=== PATIENT | female | born 1975 | race Caucasian/White ===

== ENCOUNTER → 2016-12-17 | Day surgery (SDC) | payer OTHER ==
[~2016-12-17] VITALS: Ht 165.1 cm; Wt 160.3 kg
[~2016-12-17] MED LIST: ACETAMINOPHEN 1000 MG/100 ML VIAL IV ONE; ADVA250A INH; DO NOT ADM ANY ANTICOAGULANT DRUGS XX PRN; FAMOTIDINE 20 MG/2 ML VIAL ONE; FEXO1TAB97 PO; INSULIN HUMAN REGULAR 1,000 UNITS/10 ML VIAL SQ PRN; KETOROLAC TROMETHAMINE 30 MG/ML (IVP) VIAL IV PUSH PRN; LACTATED RINGER'S 1000 ML IV SCH; METOPROLOL TARTRATE 25 MG TAB PO PRN; MIDAZOLAM HCL 2 MG/2 ML VIAL ONE; NEOSTIGMINE 3 MG/3 ML SYR IV ONE; ONDANSETRON HCL 4 MG/2 ML VIAL IV PUSH ONE; PROPOFOL 200 MG/20 ML AMP IV ONE; SODIUM CHLORID 0.9% 500 ML IV SCH; VENTAER INH
[2016-12-17 12:02] VITALS: BP 185/91; PULSE 80; RESP 20; TEMP 98.7; O2SAT 97
[2016-12-17 15:25] VITALS: BP 148/81; PULSE 63; RESP 18; TEMP 97.9; O2SAT 96
--- NOTE | 2016-12-21 10:07 | MP ---
cc: LASHELL TERRY M.D., KELLY L. MD SAHGAL, GEETA D. M.D. DATE OF SURGERY 12/17/2016 PREOPERATIVE DIAGNOSES 1. Irregular heavy bleeding. 2. Enlarged uterus, multiple leiomyomas. 3. Adnexal masses versus pedunculated leiomyomas. POSTOPERATIVE DIAGNOSES 1. Irregular heavy bleeding. 2. Enlarged uterus, multiple leiomyomas. 3. Adnexal masses versus pedunculated leiomyomas. PROCEDURE Examination under anesthesia, fractional dilation and curettage. SURGEON Praveena Quintero MD PLASTERER HELPER Sheridan senior administrative assistant. ANESTHESIA General endotracheal anesthesia. ESTIMATED BLOOD LOSS 100 cc. IV FLUIDS Approximately 1000 cc. HISTORY A 41-year-old female with heavy irregular bleeding. Exam and imaging showed a markedly enlarged uterus, multiloculated, radiographically suggestive of leiomyomas. She also has either bilateral adnexal masses are pedunculated leiomyomas. Body habitus 158 kg. She has been counseled regarding these findings, the medical versus surgical interventions that may be considered. She is scheduled for MRI scan which has not yet been done in an effort to better delineate the characteristics of the pelvic masses to determine if medical management in lieu of surgery or in preparation for surgery in an effort to reduce blood loss and reduce the size of the leiomyomas could be considered. She is seen again in the preop holding area where these issues are again discussed. She understands that today's procedures is diagnostic only to clarify the presence or absence of precancer or cancer from the endometrium or the endocervix. She understands that today's procedure cannot clarify the tissue diagnosis of the uterine and/or adnexal masses. MRI scan is hopeful to provide clarification. She expressed good understanding and agrees. PROCEDURE The patient is taken to the operating room, placed in dorsal lithotomy position after general endotracheal anesthesia was administered. Time-out was undertaken. The patient was identified by sight recognition and hospital ID bracelet and the proposed procedure was reviewed and confirmed. She was carefully positioned in padded candy-cane stirrups. She was padded and protected, all sites noted to be properly aligned with no malalignments or pressure points. Exam under anesthesia was performed. She was prepped and draped in sterile fashion. The findings were that of no appreciably enlarged inguinal lymph nodes. External genitalia without mass or lesion. The cervix grossly appears normal. There was some redundant vaginal mucosa. The uterus sounded to between 12 and 13 cm, was slightly anteverted. There was a moderate amount of tissue obtained from the endocervical curettings as well as small fragments of polypoid tissue obtained from the endometrial curettings. There was more blood than expected even during dilation of the cervix and curetting of the endocervix and endometrium. Estimated blood loss was approximately 100 cc, completely hemostatic at the end of the procedure. The cervix was grasped, uterine cavity sounded, endocervical curettings were performed, multiple passes. Circumferential biopsy of the tissue was combined as endocervical curetting. The cervix was dilated with gradual dilators. The uterine cavity was again sounded. The endometrial cavity was curetted with multiple passes circumferentially, tissue combined as endometrial curettings. More bleeding than expected for a D&C and hemostatic Yakov was placed using a laparoscopic applicator into the endometrial cavity, the lower uterine segment and endocervix and there was complete hemostasis. Tenaculum was removed and Yakov was placed at the tenaculum sites. Pelvic exam confirmed there were no remaining foreign objects in the vagina. Inspection for a number of moments confirmed good hemostasis. Preliminary and final counts were correct. She was returned to dorsal supine position pending reversal of anesthesia when I left the operating room to precede her to the Post-Anesthesia Care Unit and to speak with her family member in waiting room. ADDENDUM It is noted that her preoperative hemoglobin was 8.3 and that she was already significantly anemic with limited reserve should she continue to bleed heavy. I spoke with her and then I spoke with her in the recovery room and felt that whatever component of bleeding is due to the leiomyomas or premenopausal menometrorrhagia could potentially be benefited from starting Depo-Lupron as we had previously discussed. I again went over the medication, the potential value, the potential side effects, the menopausal symptomatology. Discussion ensued questions were answered. She and her both expressed good understanding and were in favor of starting this medication. This was not able to be given as an inpatient so my office staff to work with outpatient pharmacy such that after she was discharged from the PACU and Same-Day Surgery, she was transferred to the [facility] [place] where as an outpatient she received her first injection of 3.75 mg Depo-Lupron which she tolerated without any immediate adverse effects. She understands to contact our office to schedule followup in 1-2 weeks and she has been advised to present to the emergency room should she have a persistent and heavy bleeding and she is aware of her anemic status. MD BRITTANY Aguilar/JENNIFER /7:27 AM /9:54 AM
== END | disposition home or self-care (01) ==
LOC: HSDC 10:55
PROVIDERS: ATTEND Obstetrics & Gynecology Gynecologic Oncology
DX: N92.1 Excessive and frequent menstruation with irregular cycle (principal); D25.9 Leiomyoma of uterus, unspecified; N84.0 Polyp of corpus uteri
CPT/HCPCS: 00940; 58120; 86850; 86900; 86901; 88305; J0131; J2250; J2405; J2710; J3010; J7120

== ENCOUNTER → 2018-02-26 | Outpatient (CLI) | payer OTHER ==
[~2018-02-26] MED LIST changes: -ACETAMINOPHEN 1000 MG/100 ML VIAL IV ONE; +CALC250T PO; +CRANCAP2 PO; -DO NOT ADM ANY ANTICOAGULANT DRUGS XX PRN; -FAMOTIDINE 20 MG/2 ML VIAL ONE; +FLUTI220I INH; +HYDR-3516 PO; -INSULIN HUMAN REGULAR 1,000 UNITS/10 ML VIAL SQ PRN; -KETOROLAC TROMETHAMINE 30 MG/ML (IVP) VIAL IV PUSH PRN; -LACTATED RINGER'S 1000 ML IV SCH; -METOPROLOL TARTRATE 25 MG TAB PO PRN; -MIDAZOLAM HCL 2 MG/2 ML VIAL ONE; +MULT-65 PO; -NEOSTIGMINE 3 MG/3 ML SYR IV ONE; -ONDANSETRON HCL 4 MG/2 ML VIAL IV PUSH ONE; -PROPOFOL 200 MG/20 ML AMP IV ONE; -SODIUM CHLORID 0.9% 500 ML IV SCH
--- NOTE | 2018-02-26 15:16 | RADRPT ---
EXAM DATE/TIME: 02/26/2018 14:40 [facility] COMPARISON: No previous studies available for comparison. INDICATIONS : Evaluate for pneumonia, pneumothorax or communicable disease Hysterectomy 03/09 MEDICAL HISTORY : Asthma SURGICAL HISTORY : None. ENCOUNTER: Initial ACUITY: 1 day PAIN SCORE: 0/10 LOCATION: Bilateral chest FINDINGS: PA and lateral views of the chest demonstrate a normal-sized cardiac silhouette. There is no effusion , consolidation, or pneumothorax. The bones and soft tissues demonstrate no acute abnormality. There are degenerative changes of the thoracic spine. CONCLUSION: No acute cardiopulmonary abnormality is identified. Jorge Clinton MD on February 26, 2018 at 15:12 Board Certified Radiologist. This report was verified electronically.
--- NOTE | 2018-02-28 13:08 | EKG ---
Date Performed: 02/26/2018 Time Performed: 14:04:00 PTAGE: 42 years EKG: NORMAL Sinus rhythm NORMAL ECG NO PREVIOUS TRACING DOCTOR: Mario Good Interpretating Date/Time 02/28/2018 13:08:05
== END ==
LOC: CPRE 13:51
PROVIDERS: ATTEND Obstetrics & Gynecology Gynecologic Oncology
DX: Z01.810 Encounter for preprocedural cardiovascular examination (principal); Z01.811 Encounter for preprocedural respiratory examination; Z01.812 Encounter for preprocedural laboratory examination; Z01.818 Encounter for other preprocedural examination; N25.9 Disorder resulting from impaired renal tubular function, unspecified; N85.2 Hypertrophy of uterus
CPT/HCPCS: 71046; 93005

== ENCOUNTER 2018-03-06 06:48 | Observation (INO) | payer OTHER ==
[~2018-03-06] VITALS: Ht 165.1 cm; Wt 170.0 kg
[2018-03-06] VITALS (10 sets, daily range): BP systolic 156–188; BP diastolic 80–101; PULSE 58–85; RESP 16–20; TEMP 97.1–98.3; O2SAT 93–98
[~2018-03-06 06:48] MED LIST changes: -FLUTI220I INH; -HYDR-3516 PO
[2018-03-06] MEDS ORDERED: FLUTI220I INH (07:26)
[2018-03-06] MEDS ORDERED: ONDANSETRON HCL 4 MG/2 ML VIAL IV PUSH SCH (07:45)
[2018-03-06] MEDS ORDERED: DIAZEPAM 10 MG TAB PO SCH (07:45)
[2018-03-06] MEDS ORDERED: KETOROLAC TROMETHAMINE 30 MG/ML (IVP) VIAL IV PUSH SCH (07:45)
[2018-03-06] MEDS: SODIUM CHLOR 0.9% 1000 ML INJ 1,000 ML IV SCH ×3 (07:45→20:10)
[2018-03-06] MEDS ORDERED: SODIUM CHLOR 0.9% 1000 ML INJ 1,000 ML IV SCH (08:00)
[2018-03-06] MEDS ORDERED: fentaNYL CITRATE 250 MCG/5 ML AMP ONE (08:12)
[2018-03-06] MEDS ORDERED: MIDAZOLAM HCL 2 MG/2 ML VIAL ONE ×2 (08:12→09:33)
[2018-03-06] MEDS ORDERED: VERAPAMIL HCL 5 MG/2 ML VIAL ONE (08:12)
[2018-03-06] MEDS ORDERED: LEVOFLOXACIN 500 MG PREMIX INJ 100 ML IV ONE ×2 (08:13→08:45)
[2018-03-06] MEDS ORDERED: NALOXONE HCL 0.4 MG/ML AMP IV PUSH PRN (08:30)
[2018-03-06] MEDS ORDERED: NITROGLYCERIN 1000 MCG/5 ML VIAL OTHER ONE (09:55)
--- NOTE | 2018-03-06 11:06 | PD.RAD ---
Post Procedure Progress Note Pre Procedure Diagnosis: (1) Uterine fibroid Post Procedure Diagnosis: (1) Uterine fibroid Procedure Date: Mar 06, 2018 Supervising Radiologist: Kameron Alcantar Proceduralist/Assist: Geronimo Aguilar, RT(R), Yumiko Friend RT(R) Anesthesia: Conscious Sedation Plan of Activity Patient to Unit: [facility] Patient Condition: Good See PACS Report for procedural detail/treatment Kameron Alcantar MD Mar 06, 2018 11:06
[2018-03-06] MEDS ORDERED: ACETAMINOPHEN 325 MG TAB PO PRN (11:15)
[2018-03-06] MEDS ORDERED: HYDROmorphone HCL PF 2 MG/ML VIAL ONE (11:38)
--- NOTE | 2018-03-06 11:40 | HHI.HP ---
HPI Service [facility] Hospitalists Primary Care Physician Hanna Zhong M.D. Admission Diagnosis Chief Complaint: vaginal bleeding Travel History International Travel<30 Days: No Contact w/Intl Traveler <30 Da: No Traveled to Known Affected Are: No History of Present Illness Pt is 42 yo with asthma and irregular vaginal bleeding. Has been followed by Dr Quintero for large irregular uterine masses. Sent in today for keysha uterine artery embolization in preparation for niyah/bso on Friday according to pt. Seen in [facility] post procedure and currently using a dilaudid mortgage loan counselor. Review of Systems Other uterine fibroids Past Family Social History Past Medical History asthma uterine fibroids vaginal bleeding. 3 sections. Reported Medications Rosalia-D 24 Hour Allergy (Fexofenadine-Pseudoephedrine ER 24 HR) 180-240 Bambi 1 Tab PO DAILY PRN Advair Diskus Inh (Fluticasone-Salmeterol Inh) 250-50 Mcg/Blist Aer 1 Puff INH DAILY Rinse mouth after use. ventolin prn Allergies: Coded Allergies: latex (Unverified Allergy, Severe, GENERALIZED WELTS, 03/06/18) milk (Unverified Allergy, Severe, WHEEZE, 03/06/18) NOT ALLERGIC TO DAIRY, ONLY TO MILK penicillin G (Unverified Allergy, Severe, RASH, 03/06/18) shrimp (Unverified Allergy, Severe, ANAPHYLAXIS, 03/06/18) PT STS. ALLERGIC TO SHRIMP, BUT NO OTHER SHELLFISH AND NOT TO IODINE Family History nc Social History social etoh no tobacco Physical Exam Vital Signs lying in bed oriented no labored breathing heart reg lung cta abd s/bs ext no edema Vital Signs Date Time Temp Pulse Resp B/P (MAP) Pulse Ox O2 Delivery O2 Flow Rate FiO2 03/06/18 11:05 97.6 69 18 171/94 (119) 93 03/06/18 07:26 Room Air Caprini VTE Risk Assessment Caprini VTE Risk Assessment: Mod/High Risk (score >= 2) Caprini Risk Assessment Model Point Value = 1 Point Value = 2 Point Value = 3 Point Value = 5 Age 41-60 Minor surgery BMI > 25 kg/m2 Swollen legs Varicose veins or History of unexplained or recurrent spontaneous Oral contraceptives or hormone replacement Sepsis (< 1 month) Serious lung disease, including pneumonia (< 1 month) Abnormal pulmonary function Acute myocardial infarction Congestive heart failure (< 1 month) History of inflammatory bowel disease Medical patient at bed rest Age 61-74 Arthroscopic surgery Major open surgery (> 45 min) Laparoscopic surgery (> 45 min) Malignancy Confined to bed (> 72 hours) Immobilizing plaster cast Central venous access Age >= 75 History of VTE Family history of VTE Factor V Leiden Prothrombin [id number] Lupus anticoagulant Anticardiolipin antibodies Elevated serum homocysteine Heparin-induced thrombocytopenia Other congenital or acquired thrombophilia Stroke (< 1 month) Elective arthroplasty Hip, pelvis, or leg fracture Acute spinal cord injury (< 1 month) Prophylaxis Regimen Total Risk Factor Score Risk Level Prophylaxis Regimen 0-1 Low Early ambulation 2 Moderate Order ONE of the following: *Sequential Compression Device (SCD) *Heparin 5000 units SQ BID 3-4 Higher Order ONE of the following medications: *Heparin 5000 units SQ TID *Enoxaparin/Lovenox 40 mg SQ daily (WT < 150 kg, CrCl > 30 mL/min) *Enoxaparin/Lovenox 30 mg SQ daily (WT < 150 kg, CrCl > 10-29 mL/min) *Enoxaparin/Lovenox 30 mg SQ BID (WT < 150 kg, CrCl > 30 mL/min) AND/OR *Sequential Compression Device (SCD) 5 or more Highest Order ONE of the following medications: *Heparin 5000 units SQ TID (Preferred with Epidurals) *Enoxaparin/Lovenox 40 mg SQ daily (WT < 150 kg, CrCl > 30 mL/min) *Enoxaparin/Lovenox 30 mg SQ daily (WT < 150 kg, CrCl > 10-29 mL/min) *Enoxaparin/Lovenox 30 mg SQ BID (WT < 150 kg, CrCl > 30 mL/min) AND *Sequential Compression Device (SCD) Assessment and Plan Problem List: (1) Uterine fibroid ICD Codes: D25.9 - Leiomyoma of uterus, unspecified Status: Acute Plan: 1)uterine fibroids/vaginal bleeding. uterine art. embolization today 2. asthma pt to be admitted overnight for post procedure monitoring and pain control pt reports planned niyah/bso on Friday. cont home asthma meds dvt prophylaxis plan for d/c tomorrow if stable. Chris Guzman MD Mar 06, 2018 11:40
[2018-03-06] MEDS ORDERED: RESP: ALBUTEROL 2.5 MG/IPRATROPIUM 0.5 MG NEB (PRN) NEB (11:45)
--- NOTE | 2018-03-06 11:59 | RADRPT ---
EXAM DATE/TIME: 03/06/2018 07:54 [facility] COMPARISON: No previous studies available for comparison. INDICATIONS : 42-year-old female with history of menorrhagia and large leiomyomatous uterus. Patient is scheduled f or hysterectomy and presents for pre-surgical uterine artery embolization secondary to body habitus a nd history of multiple prior C-sections with anticipated adhesions and increased risk for hemorrhage. MEDICAL HISTORY : Asthma Gallstones Abdomen bleeding SURGICAL HISTORY : Collar bone fracture x3 ENCOUNTER: Initial ACUITY: 2 weeks PAIN SCORE: 0/10 FLUORO TIME: 23.6 minutes IMAGE SERIES: 7 ACCESS SITE: Left Radial artery SEDATION TIME: 60 minutes CONTRAST: 1.) 90 cc Visipaque (iodixanol) MEDICATION(S): 1.) 5.5 mg midazolam (Versed) IV 2.) 300 mcg fentanyl (Sublimaze) IV 1.) Bilateral uterine arteries PVA 355-550 PVA x3 PROCEDURE : 1. Ultrasound-guided puncture of the access site. 2. Conscious sedation with continuous EKG and Oximetry monitoring. 3. Pelvic angiogram 4. Selective catheter placement in the right internal iliac artery with selective angiography 5. 3-500 m particle embolization of the right uterine artery 6. Selective catheter placement in the left internal iliac artery with selective angiography 7. 3-500 m particle embolization of the left uterine artery The risks, benefits and alternatives to the procedure were explained and verbal and written consent w as obtained. The site was prepped in sterile fashion. Full sterile technique was used, including ca p, mask, sterile gloves and gown and a large sterile sheet. Hand hygiene and 2% chlorhexidine and/or betadine/alcohol prep was utilized per protocol for cutaneous antisepsis. Sterile gel and sterile p robe cover were utilized for ultrasound guidance. The skin and subcutaneous tissues were infiltrated with local anesthetic solution. With ultrasound and fluoroscopic guidance the left radial artery was punctured and a vascular sheath was placed. A 4 [place] PermCath was then advanced into the right internal iliac artery and angiograph y was performed. This demonstrated an enlarged uterine artery with abnormal enhancement in the uterus consistent with history of leiomyoma. A microcatheter was subsequently advanced into the uterine art tod and position confirmed. Uterine artery was then embolized to stasis with 3-500 m PVA particles. Followup angiography demonstrated stasis of flow and the catheter was repositioned in the left application development intern al iliac artery. Angiography was performed. This again demonstrated an enlarged left uterine artery w ith abnormal enhancement of the uterus. A microcatheter was advanced into the left uterine artery and position confirmed with angiography. The left uterine artery was subsequently embolized with 3-500 m PVA particles to stasis. Followup angiography demonstrated stasis of flow. Catheter was then reposi tioned in the distal aorta angiography was performed. This did not demonstrate any variant uterine ar teries with stasis of flow in the embolized urine arteries and resolution of abnormal enhancement in the uterus. Remaining internal iliac branches are widely patent. Catheters and wires were then remove d. Hemostasis was obtained with TR band device. The patient tolerated the procedure well and there were no complications. Conscious sedation was performed with the prescribed dosages and duration as above in the presence of an independent trained radiology nurse to assist in the monitoring of the patient. EKG and oximetry remained stable throughout the procedure. CONCLUSION: 1. Uncomplicated bilateral uterine artery embolization, as above. Kameron Alcantar MD on March 06, 2018 at 11:48 Board Certified Radiologist. This report was verified electronically.
[2018-03-06] MEDS: KETOROLAC TROMETHAMINE 30 MG/ML (IVP) VIAL IVP SCH ×2 (12:00→17:42)
[2018-03-06] MEDS: ONDANSETRON HCL 4 MG/2 ML VIAL IV PUSH PRN ×2 (13:07→17:42)
[2018-03-06] MEDS ORDERED: PCA - TOTAL MG DILAUDID DELIVERED PER SHIFT SCH (14:00)
[2018-03-06] MEDS: HYDROmorphone HCL PCA 6 MG/30 ML IV SCH ×3 (14:05→18:52)
--- NOTE | 2018-03-06 16:28 | MB ---
cc: Praveena Quintero MD,Chris Brantley,Cara RIVERA,CLARISA Alcantar,Kameron SANCHEZ DATE: 03/06/2018 DATE OF ENCOUNTER: 03/06/2018. DIAGNOSIS: 1. Large uterine leiomyomas. 2. Status post bilateral uterine artery embolization. 3. Forthcoming surgery. HISTORY OF PRESENT ILLNESS: Elinor Metcalf is seen in the Radiology Outpatient Recovery Room. She is status post bilateral uterine artery embolization by Dr. Kameron Alcantar. The reason and the request for the procedure was because of markedly enlarged uterus and she is scheduled for surgery this forthcoming Friday, hysterectomy in an effort to try to reduce intraoperative blood loss. DISCUSSION: She is still a little bit somnolent, has some pain and some nausea after anesthesia, but she has met criteria and is ready to be transferred to the floor for observation and admission and I am extremely grateful for the care provided by all parties involved, especially Dr. Chris Guzman who is graciously overseeing her care. I had the opportunity to speak with Dr. Alcantar. He felt that the procedure went well and the objectives of successful bilateral uterine artery embolization went well and is confident will help with reduction in operative blood loss. I then spoke more with Elinor Metcalf and her and had a brief conversation summarizing the saunders points and plan for surgery on Friday, as well as the preparation steps for between now and surgery. I am pleased the procedure went well. She has pain medication available including a ROLLER SETTER pump that she is using. Discussion ensued. Questions were asked and answered. They expressed good understanding. ASSESSMENT: 1. Markedly enlarged uterus. 2. Status post bilateral uterine artery embolization. 3. Forthcoming surgery scheduled this Friday. 4. Overall, doing well. PLAN: 1. Move forward with preoperative steps this and surgery Friday as scheduled. 2. I am very grateful for the care of all those involved in taking care of Elinor Metcalf. MD AXEL Meza/RENÉE , 03:38 PM , 04:27 PM
[2018-03-06] MEDS ORDERED: MORPHINE SULFATE 4 MG/ML INJ IV PRN (20:15)
[2018-03-06] MEDS ORDERED: cloNIDine HCL 0.1 MG TAB PO PRN (21:45)
[2018-03-06] MEDS ORDERED: PROMETHAZINE INJ 25 MG/ML VIAL IM PRN (22:15)
[2018-03-06] MEDS: ACETAMINOPHEN/HYDROcodone 325 MG/5 MG TAB PO PRN (22:17)
[2018-03-07 00:30] VITALS: BP 145/65; PULSE 79; RESP 18; TEMP 97.7; O2SAT 96
[2018-03-07] MEDS: KETOROLAC TROMETHAMINE 30 MG/ML (IVP) VIAL IVP SCH ×2 (00:49→05:20)
[2018-03-07] MEDS: ACETAMINOPHEN/HYDROcodone 325 MG/5 MG TAB PO PRN ×2 (04:03→09:34)
[2018-03-07 04:25] VITALS: BP 135/65; PULSE 76; RESP 16; TEMP 98.3; O2SAT 93
[2018-03-07 08:00] VITALS: BP 146/64; PULSE 72; RESP 18; TEMP 98.2; O2SAT 94
[2018-03-07] MEDS ORDERED: LEVOFLOXACIN 500 MG TAB PO SCH (09:00)
[2018-03-07] MEDS ORDERED: BUDESONIDE-FORMOTEROL 160/4.5 MCG INHALER INH SCH (09:00)
--- NOTE | 2018-03-07 09:59 | HHI.PR ---
Subjective Remarks Pts pain is better controlled this morning with oral pain meds She wants to get out of bed and move Ivy cath still in place Objective Vitals Vital Signs Date Time Temp Pulse Resp B/P (MAP) Pulse Ox O2 Delivery O2 Flow Rate FiO2 03/07/18 08:00 98.2 72 18 146/64 (91) 94 03/07/18 05:23 93 Room Air 03/07/18 04:50 Nasal Cannula 2.00 03/07/18 04:25 98.3 76 16 135/65 (88) 93 03/07/18 00:30 97.7 79 18 145/65 (91) 96 03/06/18 20:30 97.4 68 17 180/86 (117) 95 03/06/18 20:17 95 Nasal Cannula 2.00 03/06/18 18:52 16 03/06/18 16:00 97.1 58 16 186/80 (115) 95 03/06/18 15:45 18 03/06/18 14:20 62 20 163/88 (113) 95 03/06/18 14:15 16 03/06/18 14:05 20 03/06/18 13:50 59 18 156/87 (110) 98 03/06/18 13:20 72 18 156/82 (106) 94 03/06/18 12:50 74 18 171/90 (117) 95 03/06/18 12:20 72 18 165/91 (115) 95 03/06/18 11:50 85 20 176/99 (124) 93 03/06/18 11:20 73 20 177/90 (119) 95 03/06/18 11:05 98.3 80 20 188/101 (130) 93 03/06/18 11:05 97.6 69 18 171/94 (119) 93 Imaging Last Impressions Angiography 03/06/18 0707 Signed Impressions: Service Date/Time: Tuesday, March 06, 2018 07:54 - CONCLUSION: 1. Uncomplicated bilateral uterine artery embolization, as above. Kameron Alcantar MD Objective Remarks General: NAD, AAOx3 Chest: CTA bilaterally Cardiac: Regular Abd: +BS, soft obese, nondistended Ext: No edema A/P Problem List: (1) Uterine fibroid ICD Codes: D25.9 - Leiomyoma of uterus, unspecified Status: Acute Plan: Uterine fibroids/vaginal bleeding s/p bilateral uterine artery embolization on - Cont. pain control PRN with oral pain meds - Pt is planned for NIYAH/BSO on Friday with Dr. Quintero - Remove Ivy cath today - OOB with assistance - DVT prophylaxis - Anticipate d/c home later today Asthma - Cont home asthma meds Assessment and Plan Patient examined. Assessment and plan formulated with Teri Hammer PA-C. I agree with the above. s/p uterine artery embolization. niyah/bso Friday d/c home. Problem Qualifiers (1) Uterine fibroid: Qualified Codes: D25.9 - Leiomyoma of uterus, unspecified Teri Hammer Mar 07, 2018 09:59 Chris Guzman MD Mar 07, 2018 11:40
--- NOTE | 2018-03-07 10:04 | HHI.DCPOC ---
Discharge Care Plan Diagnosis: (1) Uterine fibroid Goals to Promote Your Health * To prevent worsening of your condition and complications * To maintain your health at the optimal level Directions to Meet Your Goals Take your medications as prescribed Follow your dietary instruction Follow activity as directed Keep your appointments as scheduled Take your immunizations and boosters as scheduled If your symptoms worsen call your PCP, if no PCP go to Urgent Care Center or Emergency Room Smoking is Dangerous to Your Health. Avoid second hand smoke Call the 24-hour hour crisis hotline for domestic abuse at Teri Hammer Mar 07, 2018 10:04
[2018-03-07] MEDS ORDERED: HYDR-3516 PO (10:28)
[2018-03-07 10:34] VITALS: RESP 18
== END 2018-03-07 13:12 | disposition home or self-care (01) ==
LOC: HROP 06:48 → HRIP 06:48 → N06A 14:55 → HROP 16:08 → N06A 16:08
PROVIDERS: ADMIT Hospitalist; ATTEND Hospitalist
DX: D25.9 Leiomyoma of uterus, unspecified (principal); N93.9 Abnormal uterine and vaginal bleeding, unspecified; N85.2 Hypertrophy of uterus; J45.909 Unspecified asthma, uncomplicated
CPT/HCPCS: 36247; 37243; 75625; 75736; 75774; 86850; 86900; 86901; 96372; 96374; 96375; 96376; 99152; 99153; C1769; C1887; C1894; G0378; J1170; J1644; J1885; J1956; J2250; J2270; J2405; J2550; J3010; J7030

== ENCOUNTER 2018-03-09 05:47 | Inpatient (IN) | payer OTHER ==
[~2018-03-09] VITALS: Ht 165.1 cm; Wt 167.6 kg
[2018-03-09] VITALS (7 sets, daily range): BP systolic 130–209; BP diastolic 64–87; PULSE 74–88; RESP 16; TEMP 97.8–98.4; O2SAT 96–99
[~2018-03-09 05:47] MED LIST changes: +FLUTI220I INH; +HYDR-3516 PO
[2018-03-09] MEDS ORDERED: HEPARIN SODIUM - SQ 10,000 UNITS/ML VIAL SQ SCH (06:30)
[2018-03-09] MEDS ORDERED: POVIDONE IODINE 5% (ANTISEPSIS KIT) 4 APPLICATIONS EACH NARE PRN (06:30)
[2018-03-09] MEDS ORDERED: LACTATED RINGER'S 1000 ML IV PRN (06:30)
[2018-03-09] MEDS ORDERED: SODIUM CHLORID 0.9% 500 ML IV PRN (06:30)
[2018-03-09] MEDS ORDERED: LEVOFLOXACIN 500 MG PREMIX INJ 100 ML IV SCH (06:30)
[2018-03-09] MEDS ORDERED: metroNIDAZOLE 500 MG INJ 100 ML IV SCH (06:30)
[2018-03-09] MEDS ORDERED: METOPROLOL TARTRATE 25 MG TAB PO PRN (06:30)
[2018-03-09] MEDS ORDERED: CHLORHEXIDINE GLUCONATE 2 % 1 PACK (2 CLOTHS) TOPICAL PRN (06:30)
[2018-03-09] MEDS ORDERED: ACETAMINOPHEN 1000 MG/100 ML 100 ML IV ONE (06:55)
[2018-03-09] MEDS ORDERED: SUGAMMADEX SODIUM 200 MG/2 ML VIAL IV PUSH ONE (11:10)
[2018-03-09] MEDS ORDERED: METHYLENE BLUE 10 MG/ML VIAL OTHER ONE (11:24)
[2018-03-09] MEDS ORDERED: GLYCOPYRROLATE 1 MG/5 ML SYRINGE IV PUSH ONE (12:00)
[2018-03-09] MEDS ORDERED: METOPROLOL TARTRATE 5 MG/5 ML VIAL IV ONE (12:00)
[2018-03-09] MEDS ORDERED: LABETALOL HCL 100 MG/20 ML VIAL IV ONE (12:00)
[2018-03-09] MEDS ORDERED: ONDANSETRON HCL 4 MG/2 ML VIAL IV ONE (12:00)
[2018-03-09] MEDS ORDERED: DEXAMETHASONE SOD PHOS 4 MG/ML VIAL IV ONE (12:00)
[2018-03-09] MEDS ORDERED: VECURONIUM BROMIDE 20 MG VIAL IV ONE (12:00)
[2018-03-09] MEDS ORDERED: STERILE WATER FOR INJECTION 20 ML VIAL IV ONE (12:00)
[2018-03-09] MEDS ORDERED: PROPOFOL 200 MG/20 ML AMP IV ONE (12:00)
[2018-03-09] MEDS ORDERED: SUCCINYLCHOLINE CHLORIDE 100 MG/5 ML SYRINGE IV PUSH ONE (12:00)
[2018-03-09] MEDS ORDERED: ROCURONIUM INJ 50 MG/5 ML SYRINGE IV PUSH ONE (12:00)
[2018-03-09] MEDS: D5-1/2 NS + KCL 20 MEQ INJ 1,000 ML IV SCH ×3 (12:26→22:04)
[2018-03-09] MEDS ORDERED: diphenhydrAMINE HCL 25 MG CAP PO PRN (12:30)
[2018-03-09] MEDS ORDERED: SODIUM CHLORIDE 0.9% FLUSH 10 ML FLUSH IV FLUSH PRN ×2 (12:30)
[2018-03-09] MEDS ORDERED: oxyCODONE/ACETAMINOPHEN 5 MG/325 MG TAB PO PRN ×2 (12:30)
[2018-03-09] MEDS ORDERED: NALOXONE HCL 0.4 MG/ML AMP IV PUSH PRN (12:30)
[2018-03-09] MEDS ORDERED: LORazepam 0.5 MG TAB PO PRN (12:30)
[2018-03-09] MEDS ORDERED: ONDANSETRON HCL 4 MG/2 ML VIAL IVP PRN (12:30)
[2018-03-09] MEDS ORDERED: *RESP: ALBUTEROL 2.5 MG/3 ML NEB (PRN) PERIprocedural Use ONLY NEB ONE (12:41)
[2018-03-09] MEDS ORDERED: MORPHINE SULFATE 4 MG/ML INJ ONE (12:48)
[2018-03-09] MEDS ORDERED: MIDAZOLAM HCL 2 MG/2 ML VIAL ONE (12:49)
[2018-03-09] MEDS: KETOROLAC TROMETHAMINE 30 MG/ML (IVP) VIAL IVP SCH ×2 (13:00→19:11)
[2018-03-09] MEDS ORDERED: DO NOT ADM ANY ANTICOAGULANT DRUGS PRN (13:30)
[2018-03-09] MEDS: MORPHINE SULFATE 30 MG/30 ML PCA IV SCH ×2 (14:13→20:20)
[2018-03-09] MEDS ORDERED: *ONDANSETRON 4 MG VIAL PERIprocedural Use ONLY ONE (14:20)
[2018-03-09] MEDS ORDERED: *LABETALOL HCL 100 MG/20 ML VIAL PERIprocedural Use ONLY ONE (14:33)
--- NOTE | 2018-03-09 16:14 | PD.ONC.PN ---
Subjective Subjective Remarks Post op patient is seen in PACU, awake states pain controlled with DEPUTY PROGRAM MANAGER denies any N/V no complaints waiting for bed has NC and using IS Objective Data Date Time Temp Pulse Resp B/P (MAP) Pulse Ox O2 Delivery O2 Flow Rate FiO2 03/09/18 15:30 82 18 160/70 (100) 94 Nasal Cannula 3 03/09/18 14:30 78 17 149/71 (97) 94 Nasal Cannula 3 03/09/18 14:13 15 03/09/18 14:00 86 20 171/78 (109) 92 Nasal Cannula 3 03/09/18 13:30 86 15 162/72 (102) 92 Nasal Cannula 3 03/09/18 13:15 84 16 174/71 (105) 92 Nasal Cannula 3 03/09/18 13:00 88 16 174/80 (111) 95 Nasal Cannula 4 03/09/18 12:45 88 17 172/74 (106) 95 Simple Mask 6 03/09/18 12:36 98.6 91 15 158/75 (102) 95 Simple Mask 6 03/09/18 06:15 99.8 100 18 162/78 (106) 97 03/09/18 03/09/18 03/09/18 07:00 15:00 23:00 Intake Total 2600 ml Output Total 700 ml Balance 1900 ml Administered Medications Medications (Trade) Dose Ordered Sig/Jah Route PRN Reason Start Time Stop Time Status Last Admin Dose Admin Lactated Ringer's 1,000 ml @ 30 mls/hr Q24H PRN IV SEE LABEL COMMENTS 03/09/18 06:30 03/12/18 06:29 03/09/18 06:45 Chlorhexidine Gluconate (Chlorhexidine 2% Cloth) 3 pack BULB GROWER PRN TOPICAL SEE LABEL COMMENTS 03/09/18 06:30 03/12/18 06:29 03/09/18 06:15 Metronidazole 100 ml @ 200 mls/hr BULB GROWER IV 03/09/18 06:30 03/12/18 06:29 03/09/18 06:56 Heparin Sodium (Porcine) (Heparin Inj) 5,000 units BULB GROWER SQ 03/09/18 06:30 03/10/18 06:29 03/09/18 06:48 Potassium Chloride/Dextrose/ Sod Cl 1,000 ml @ 125 mls/hr Q8H IV 03/09/18 12:26 03/09/18 12:26 Ketorolac Tromethamine (Toradol Inj) 30 mg Q6H IVP 03/09/18 13:00 03/12/18 07:01 03/09/18 13:00 Morphine Sulfate (Morphine 1 Mg/ ml DEPUTY PROGRAM MANAGER) 30 mg UNSCH IV 03/09/18 12:30 03/09/18 14:13 Objective Remarks GENERAL: Well-nourished, well-developed patient. SKIN: Warm and dry. HEAD: Normocephalic. EYES: No scleral icterus. No injection or drainage. CARDIOVASCULAR: Regular rate and rhythm without murmurs. RESPIRATORY: Breath sounds equal bilaterally. No accessory muscle use. GASTROINTESTINAL: Abdomen soft, dressing c/d/i EXTREMITIES: teds and scds MUSCULOSKELETAL: Adequate muscle tone. NEUROLOGICAL: No obvious focal deficit. Awake, alert, and oriented x3. PSYCHIATRIC: Appropriate mood and affect; insight and judgment normal. Assessment/Plan Problem List: (1) Post-operative state ICD Codes: Z98.890 - Other specified postprocedural states Plan: s/p X lap for MOR Post op orders in EMR DEPUTY PROGRAM MANAGER for pain control clear liquids IS at bedside and patient using NC 3 liters D/C castro on POD #2 OOB to chair tomorrow will consider consulting PT/OT to help with ambulation post-op Lin Burt Mar 09, 2018 16:14
[2018-03-09] MEDS ORDERED: HYDROCHLOROTHIAZIDE 25 MG TAB PO PRN (17:00)
[2018-03-09] MEDS: PCA - TOTAL MG MORPHINE DELIVERED PER SHIFT SCH ×2 (20:23→22:05)
[2018-03-09] MEDS: SODIUM CHLORIDE 0.9% FLUSH 10 ML FLUSH IV FLUSH SCH ×2 (20:36→20:37)
[2018-03-09] MEDS ORDERED: LORATADINE/PSEUDOEPHEDRINE 5 MG/120 MG TAB PO PRN (21:00)
[2018-03-10] VITALS (10 sets, daily range): BP systolic 120–168; BP diastolic 59–87; PULSE 57–81; RESP 16–18; TEMP 97.8–98.3; O2SAT 93–99
[2018-03-10] MEDS: KETOROLAC TROMETHAMINE 30 MG/ML (IVP) VIAL IVP SCH ×4 (00:08→21:04)
[2018-03-10] MEDS: D5-1/2 NS + KCL 20 MEQ INJ 1,000 ML IV SCH ×2 (06:12→15:58)
[2018-03-10] MEDS: PCA - TOTAL MG MORPHINE DELIVERED PER SHIFT SCH ×2 (06:12→16:09)
[2018-03-10 06:34] LABS: BICARBONATE 29.6 MEQ/L (21.0-32.0); CALCIUM 8.1 MG/DL (8.5-10.1); CREATININE 0.74 MG/DL (0.50-1.00)
[2018-03-10 06:37] LABS: AUTOMATED NEUTROPHIL # 9.9 TH/MM3 (1.8-7.7); BASOPHIL % 0.3 % (0.0-2.0); EOSINOPHIL % 0.1 % (0.0-4.0); HEMATOCRIT 35.4 % (35.0-46.0); HEMOGLOBIN 11.5 GM/DL (11.6-15.3); LYMPH % 11.2 % (9.0-44.0); LYMPHOCYTE # 1.4 TH/MM3 (1.0-4.8); MEAN CELL VOLUME 82.3 FL (80.0-100.0); MEAN CORPUSCULAR HEMOGLOBIN 26.8 PG (27.0-34.0); MEAN CORPUSCULAR HGB CONC 32.5 % (32.0-36.0); MEAN PLATELET VOLUME 8.4 FL (7.0-11.0); MONO % 6.6 % (0.0-8.0); MONOCYTE # 0.8 TH/MM3 (0-0.9); NEUT % 81.8 % (16.0-70.0); PLATELET COUNT 282 TH/MM3 (150-450); RED BLOOD COUNT 4.31 MIL/MM3 (4.00-5.30); RED CELL DISTRIBUTION WIDTH 15.3 % (11.6-17.2); WHITE BLOOD COUNT 12.2 TH/MM3 (4.0-11.0)
--- NOTE | 2018-03-10 06:54 | HHI.PR ---
Subjective . no new c/o, adequate pain control +/- sleep last night, no n/v, no cp, no sob Objective . afeb, vss, bp 120-168/64-78, isolated elevation early post-op 209/90 resolved i/o 3850/3650, h/h 11.5/35.4, bun/creat 7/0.94 a&o x 3, nad cta except basilar rales, rrr clean, dry, no melon packer bleeding noted ext nt, scds in place Assessment/Plan . pod #1 doing well in early post-op period Q&A, preliminary path discussed OOB, spirometry, adat, remove castro when ambulatory Praveena Quintero MD Mar 10, 2018 06:54
--- NOTE | 2018-03-10 08:25 | MP ---
cc: Praveena Quintero MD, Marjorie MD Sahgal,Hanna SANCHEZ DATE OF OPERATION: 03/09/2018 PREOPERATIVE DIAGNOSIS: Markedly enlarged uterus with multiple uterine masses. POSTOPERATIVE DIAGNOSIS: 1. Markedly enlarged uterus. 2. Bilateral complex adnexal masses. PROCEDURE: Exploratory laparotomy, total abdominal hysterectomy, bilateral salpingo-oophorectomy. SURGEON: Praveena Quintero MD. TELECOMMUNICATIONS LINE INSTALLER: Britton cutter first. ANESTHESIA: General endotracheal anesthesia. ESTIMATED BLOOD LOSS: 300 mL. IV FLUIDS: 2700 mL. URINE OUTPUT: 400 mL. HISTORY: A 42-year-old female with markedly enlarged uterus thought to represent leiomyoma as possibly adenomyosis, heavy irregular periods, sense of pelvic pain and pressure. She has been managed medically with Depot Lupron. There has been some improvement in her symptomatology and some apparent reduction in size of the uterus and uterine masses while on this medication. She has been counseled a number of times. She is absolutely certain she wants definitive surgery. She understands the reproductive and menopausal ramifications. She has also been counseled regarding if the ovaries appeared normal whether or not she wishes to have preserved given that she is not yet menopausal and age. She was seen again in the preop holding area where these issues were again discussed and she says if there is any abnormality or concerned at all about the ovaries to remove them, but if one or both ovaries look completely normal, her preference would be to have them preserved, but she does not want to take any chances on future surgery so she is accepting either way depending upon the anatomy. She has been counseled numerous times regarding her increased risk and her body habitus, the size of the pelvic masses, prior sections x 3 and technical challenges related to these issues. She understands and wishes to move forward. FINDINGS: Upon exploration, there were minimal adhesions to the anterior abdominal wall. The omentum was stuck to prior midline vertical section incisions, which were taken down with sharp dissection. The uterus is symmetrically enlarged estimated to be between 18 and 20 cm as it extends close to the umbilicus. The fundus was quite wide and the uterus was symmetrically enlarged. It is as wide as it is extended in length. The prominence of the uterus is extending to the lower uterine segment, but the cervix narrows into a normal appearing cervix. Both adnexa are abnormal and radiographically it was uncertain if the masses represented pedunculated leiomyomas or adnexal masses, but on the left side, an estimated 10 cm complex mass with a large solid component. On the right side, perhaps a 6-7 cm mass similar complex with a solid component. There were relatively minimal adhesions. Exploration of the abdomen revealed the liver, diaphragm edge to be smooth. The omentum grossly normal, except for a few adhesions, no peritoneal implants. There were no palpable masses or nodularity. No peritoneal implants. No obvious adenopathy. Frozen section of the left adnexal mass showed it to be a benign cystadenofibroma. Frozen section of the right adnexal mass showed it to be a benign cyst adenofibroma. Frozen section analysis of the uterus showed it to be extensive adenomyosis, possible smaller leiomyomas. The majority of the increased uterine size was thought due to extensive adenomyosis. There was no evidence of malignancy in any of those specimens. STATEMENT OF COMPLEXITY/MODIFIERS: The complexity of this case was significantly increased for two principal reasons. First, the uterus was markedly enlarged, which increased the complexity of all steps of the dissection. The uterus was clearly larger than 250 grams. Secondly, her body habitus with a weight of 170 kg (BMI of 62.7) all aspects of the surgical case were increased and complexity. Modifier should be applied accordingly. PROCEDURE: She was taken to the operating room, placed in the dorsal lithotomy position after general endotracheal anesthesia was administered. Time-out was undertaken. She was identified by site recognition and hospital ID bracelet and the proposed procedure was reviewed and confirmed. She was carefully positioned in padded Armando stirrups. Her arms were secured out to the sides. All sites were checked proper positioning with no malalignment or pressure points. She was prepped and draped in a sterile fashion. Ivy catheter placed in the bladder. Orogastric tube was in the stomach on suction and after prepping the abdomen in a sterile fashion, an incision was made going through her prior midline vertical which was just slightly to the right of the midline and this was continued up to the level of the umbilicus in the midline and carried down to the level of the fascia. The fascia was entered. The fascia was extended the length of the skin incision. Entry was made in the peritoneum just below the umbilicus where there were adhesions from prior surgery and then sharp dissection was used to free the omentum from its attachments to the anterior abdominal wall. Once the omentum was mobilized, additional adhesions were taken down, filmy adhesions between loops of small bowel and the anterior abdominal wall peritoneum and then the peritoneal incision was extended the length of the skin incision. The anatomy was explored with findings as described above. The Bookwalter retractor was assembled. Lap pads were used to help pack back the bowel as the Bookwalter retractor was used to assist in surgical exposure. The left round ligament was identified, doubly suture ligated with 0 Vicryl sutures and transected. The anterior and posterior leafs of the broad ligament were opened and the retroperitoneal dissection was carried lateral and parallel to the gonadal vessels and then dissection along the medial leaf of the broad ligament allowed identification of the ureter. It was difficult to visualize, but could be palpated and an opening was made in the peritoneum just below the left ovary from below the uteroovarian ligament. Dissection was then carried out proximally elevating the gonadal vessels with sharp dissection to free the adhesions and blunt dissection to ensure the ureter had been retracted posteriorly. The infundibulopelvic ligament was doubly clamped, cut, and doubly suture ligated. Dissection was continued toward the uterus until the mass was attached only by the uteroovarian ligament which was doubly clamped and cut thereby removing the left tube and ovary mass and sent for frozen section analysis with benign findings as described above. Attention was redirected toward the right side where the right round ligament was isolated, doubly suture ligated and transected. The anterior and posterior leafs of the broad ligament were opened. The right ureter was palpated on the medial leaf of the broad ligament. A window was made in the peritoneum below the right utero-ovarian ligament and the gonadal vessels were elevated as sharp dissection was carried out just beneath the gonadal vessels as the remainder of the tissue was dissected posteriorly ensuring that the ureter was dropped posteriorly. The infundibulopelvic ligament was isolated, now doubly clamped, cut and doubly suture ligated. Dissection was carried out toward the uterus until the right utero-ovarian ligament was isolated, which was doubly clamped and cut thereby removing the right tube and ovary sent for frozen section analysis with benign findings as described above. Having removed the adnexal masses, there was a little bit better visualization. The uterine fundus was then essentially extended from the pelvic sidewall to pelvic sidewall requiring great manual effort to constantly move the uterus to allow visibility and dissection along each side. Adhesions were taken down from the preexisting bladder flap with isolated blunt and sharp dissection, focal point cautery and the previous scarring was taken down with sharp dissection. Once the dissection was below the level of the section scar, the filmy adhesions in the normal vesicouterine peritoneum were identified, which were dissected down below the level of the cervix and the cervix was noted to be quite long requiring fairly extensive dissection deep into the pelvis. The posterior peritoneum was opened. Uterine vessels were skeletonized bilaterally. There was some blanching of the uterus consistent with her recent bilateral uterine artery embolization in preparation for surgery, but the uterine vessels were still prominent and they were clamped, cut, and suture ligated bilaterally. Dissection was continued first along the left side where the cardinal, paracervical and uterosacral ligaments were isolated, clamped, cut, and suture ligated right along the edge of the cervix, dissecting down to the level of the cervix. A similar dissection was then carried out on the contralateral side where the cardinal, paracervical and uterosacral ligaments were isolated, clamped, cut, and suture ligated in a stepwise fashion until dissection was complete to the level of the cervix. Curved Le clamps were placed below the cervix at the lateral vaginal angles. Sharp dissection was used to separate and cut the cervix and separate it from the vaginal apex. The specimen was inspected. The cervix was noted to be removed in its entirety and the enlarged uterus was sent for frozen section analysis, which came back with benign findings as described above. The vaginal cuff was supported at the lateral angles with interrupted [id number] sutures, incorporating the edge of the uterosacral ligament and the posterior peritoneum. The cuff was closed with running interrupted [id number] 0 Vicryl sutures which rendered it are completely hemostatic and well supported. Small bleeders were rendered hemostatic with bipolar cautery. The pelvis was thoroughly irrigated. All sites noted to be hemostatic. To confirm the integrity of the bladder, the bladder was filled with saline dyed with methylene blue. Approximately 250 mL of saline was used to distend the bladder. The bladder was inspected and palpated intact. There were no thin areas in the bladder, no visible blue and certainly no extravasation of dye. There was a good margin between the vaginal cuff suture line and the edge of the bladder. There was good peristalsis of ureters through the pelvis bilaterally. The bladder was drained. The pelvis was again irrigated, hemostatic Surgicel powder was placed across the vaginal cuff and lateral pelvic sidewalls to assist in continued hemostasis. It was felt that all reasonable surgical objectives had been completed, the lap pads were removed and the Bookwalter retractor was disassembled. Visual and manual palpation throughout the peritoneal cavity revealed no remaining foreign objects and preliminary counts were correct. The anatomy was reassessed with findings as described above. The abdominal wall was closed with a running 0 looped PDS in a modified Smead-Rider fashion starting at the apices and meeting in the midpoint where the sutures were tied. Subcutaneous tissue was irrigated copiously and then Vicky's fascia reapproximated with interrupted 2-0 Vicryl sutures and the skin edges closed with nolan. Dry sterile dressing placed over the incision. Pelvic exam confirmed there were no remaining foreign objects in the vagina. Final counts were correct. She was returned to dorsal supine position and was pending reversal of anesthesia when I left the operating room to precede her to the postanesthesia care unit. MD AXEL Meza/BRIAN , 05:14 AM , 08:24 AM
[2018-03-10] MEDS ORDERED: BUDESONIDE-FORMOTEROL 160/4.5 MCG INHALER INH SCH (09:00)
[2018-03-10] MEDS: SODIUM CHLORIDE 0.9% FLUSH 10 ML FLUSH IV FLUSH SCH ×2 (09:00→11:35)
[2018-03-10] MEDS: MORPHINE SULFATE 30 MG/30 ML PCA IV SCH (10:26)
[2018-03-11 00:02] VITALS: PULSE 78
[2018-03-11 00:47] VITALS: BP 128/72; PULSE 67; RESP 18; TEMP 97.9; O2SAT 96
[2018-03-11] MEDS: KETOROLAC TROMETHAMINE 30 MG/ML (IVP) VIAL IVP SCH ×2 (00:49→06:22)
[2018-03-11 04:15] VITALS: PULSE 59
[2018-03-11 06:18] VITALS: BP 126/66; PULSE 65; RESP 18; TEMP 97.6
[2018-03-11] MEDS ORDERED: HYDR-3516 PO (07:21)
--- NOTE | 2018-03-11 07:33 | HHI.DS ---
Discharge Summary Admission Date Mar 09, 2018 at 05:47 Discharge Date: Mar 11, 2018 Admitting Diagnosis enlarged uterus bilateral adnexal masses (1) Post-operative state ICD Codes: Z98.890 - Other specified postprocedural states Status: Acute (2) Uterine fibroid ICD Codes: D25.9 - Leiomyoma of uterus, unspecified Status: Acute Procedures X Lap MOR with BSO and resection of pelvic masses. Brief History Mrs. Metcalf was found to have enlarged uterus, and bilateral adnexal masses. She was being managed medically with Depo-Lupron injections but ultimately requested definitive surgery. She presented for surgery on 03/09/18. CBC/BMP: 03/10/18 0521 03/10/18 0521 Significant Findings Laboratory Tests Test 03/10/18 05:21 White Blood Count 12.2 TH/MM3 (4.0-11.0) Hemoglobin 11.5 GM/DL (11.6-15.3) Mean Corpuscular Hemoglobin 26.8 PG (27.0-34.0) Neutrophils (%) (Auto) 81.8 % (16.0-70.0) Neutrophils # (Auto) 9.9 TH/MM3 (1.8-7.7) Random Glucose 133 MG/DL (74-106) Calcium Level 8.1 MG/DL (8.5-10.1) Estimat Glomerular Filtration Rate 85 ML/MIN (>89) PE at Discharge general: A and O X 3 in NAD head: normal cephalic atraumatic Heart: RRR no MMR Lungs: CTA bilat Abd: dressing was removed and nolan intact without s/s of infection LE: no cyanosis, clubbing or edema Hospital Course Her hospital course was unremarkable. Her pain has been controlled with UNIT DIRECTOR. She has been eating and drinking normally without complaints of nausea or vomiting. She meets all criteria for discharge. Pt Condition on Discharge: Good Discharge Disposition: Discharge Home Discharge Instructions DIET: Follow Instructions for: As Tolerated, No Restrictions Activities you can perform: Pelvic Rest Activities to avoid: Strenuous Activity, Sexual Activity Additional Activity Instructio: no heavy lifting > 5 pounds Follow up Referrals: Appointment for Follow Up @ [facility] Continued Medications: Fexofenadine-Pseudoephedrine ER 24 HR (Rosalia-D 24 Hour Allergy) 180-240 Bambi 1 TAB PO DAILY PRN for ALLERGIES, #30 TAB 0 Refills Fluticasone-Salmeterol Inh (Advair Diskus Inh) 250-50 Mcg/Blist Aer 1 PUFF INH DAILY, #1 INHALER 0 Refills Rinse mouth after use. Hydrocodone/Acetaminophen (Hydrocodone-Acetamin 5-325 mg) 5 Mg-325 Mg Tablet 1 TAB PO Q4H PRN for pain for 7 Days, #42 TAB (This prescription has been renewed) Lin Burt [facility] Mar 11, 2018 07:33
[2018-03-11 07:38] VITALS: PULSE 56
[2018-03-11 08:08] VITALS: BP 185/80; PULSE 85; RESP 20; TEMP 97.9; O2SAT 96
== END 2018-03-11 11:25 | disposition home or self-care (01) | DRG 742 ==
LOC: HSDI 05:47 → HCIN 16:34
PROVIDERS: ADMIT Obstetrics & Gynecology Gynecologic Oncology; ATTEND Obstetrics & Gynecology Gynecologic Oncology
PROC: 0UT70ZZ Resection of Bilateral Fallopian Tubes, Open Approach (ICD-10-PCS; 2018-03-09)
PROC: 0UT90ZZ Resection of Uterus, Open Approach (ICD-10-PCS; 2018-03-09)
PROC: 0UTC0ZZ Resection of Cervix, Open Approach (ICD-10-PCS; 2018-03-09)
PROC: 0UT20ZZ Resection of Bilateral Ovaries, Open Approach (ICD-10-PCS; principal; 2018-03-09 07:26)
DX: D25.9 Leiomyoma of uterus, unspecified (principal); Z68.44 Body mass index [BMI] 60.0-69.9, adult; N80.0 Endometriosis of uterus; D27.0 Benign neoplasm of right ovary; D27.1 Benign neoplasm of left ovary; N93.9 Abnormal uterine and vaginal bleeding, unspecified; J45.909 Unspecified asthma, uncomplicated
CPT/HCPCS: 76937; 80048; 85025; 86920; 88112; 88305; 88307; 88329; 88331; 94150; 94664; J0131; J0330; J1100; J1644; J1885; J2250; J2270; J2405; J3010; J3480; J7120; J7613